=== PATIENT | female | born 1995 | race Caucasian/White ===

== ENCOUNTER 2019-05-14 19:35 | Emergency (ER) | payer MEDICAID, OTHER ==
[~2019-05-14] VITALS: Ht 160 cm; Wt 77.1 kg
[~2019-05-14 19:35] MED LIST: PRENCAP61 PO
[2019-05-14 20:53] LABS: Basophils # (auto) 0 uL; Basophils % (auto) 0.4 % (0.0-2.0); Eosinophils # (auto) 0.4 uL; Eosinophils % (auto) 2.9 % (0.0-7.0); Hematocrit 42.1 % (36.0-46.0); Lymphocytes # (auto) 3.7 uL; Lymphocytes % (auto) 29.8 % (10.0-50.0); Mean Corpuscular Hemoglobin 31.4 pg (28.0-32.0); Mean Corpuscular Hgb Conc. 33.3 g/dL (32.0-36.0); Mean Corpuscular Volume 94.5 fL (80.0-100.0); Monocytes # (auto) 1.4 uL; Monocytes % (auto) 11.5 % (0.0-12.0); Neutrophils # (auto) 6.9 uL; Neutrophils % (auto) 55.4 % (37.0-80.0); Platelet Count (auto) 346 10^3/uL (140-450); Red Blood Cells 4.46 10^6/uL (4.0-5.20); White Blood Cell 12.5 10^3/uL (4.4-10.8)
[2019-05-14 21:01] LABS: Urine Bacteria FEW /hpf (None Seen); Urine Blood 1+ /uL (Negative); Urine Specific Gravity 1.027 (1.001-1.035); Urine WBC <1 /hpf (0 - 5)
[2019-05-14 21:09] LABS: Albumin 3.6 g/dL (3.4-5.0); Calcium 8.8 mg/dL (8.5-10.1); Potassium 3.6 mmol/L (3.5-5.1)
[2019-05-14 21:10] LABS: Partial Thromboplastin Time 28.7 sec (23.64-32.05)
[2019-05-14 21:14] LABS: BUN/Creatinine Ratio 17.8; Bilirubin, Total 0.2 mg/dL (0.2-1.0); Total Protein 7.5 g/dL (6.4-8.2)
[2019-05-14 23:33] VITALS: BP 125/70
[2019-05-14] MEDS ORDERED: LIDOCAINE 2% (LOCAL ANESTH.) PF 5ml SDV IJ ONE (23:45)
[2019-05-14] MEDS ORDERED: cefTRIAXone SOD 1,000 MG VL IM ONE (23:45)
== END 2019-05-15 00:22 | disposition home or self-care (01) ==
LOC: ER 19:35
DX: A08.4 Viral intestinal infection, unspecified (principal); H66.92 Otitis media, unspecified, left ear; Z91.040 Latex allergy status
CPT/HCPCS: 36415; 80053; 81001; 82150; 83690; 83735; 84702; 85025; 85610; 85730; 96372; 99283; J0696; J2001

== ENCOUNTER 2023-01-18 16:34 | Emergency (ER) | payer MEDICAID ==
[~2023-01-18] VITALS: Ht 167.6 cm; Wt 69.3 kg
[2023-01-18] MEDS ORDERED: ALPR0.5T PO (17:27)
[2023-01-18 18:51] VITALS: BP 126/75; PULSE 80; RESP 16; TEMP 98; O2SAT 100
== END 2023-01-18 18:52 | disposition home or self-care (01) ==
LOC: ER 16:34
DX: K64.8 Other hemorrhoids (principal); F41.9 Anxiety disorder, unspecified; Z91.040 Latex allergy status

== ENCOUNTER 2023-01-26 19:24 | Emergency (ER) | payer MEDICAID ==
[~2023-01-26] VITALS: Ht 160 cm; Wt 77.0 kg
[~2023-01-26 19:24] MED LIST changes: +ALPR0.5T PO
[2023-01-26 20:00] LABS: Basophils # (auto) 0.1 10 ^3/uL (0-0.2); Basophils % (auto) 0.5 % (0.0-2.0); Eosinophils # (auto) 0.7 10 ^3/uL (0-0.8); Eosinophils % (auto) 4.8 % (0.0-7.0); Hemoglobin 13.7 g/dL (12.2-16.2); Lymphocytes # (auto) 4.3 10 ^3/uL (0.4-5.4); Lymphocytes % (auto) 31.8 % (10.0-50.0); Mean Corpuscular Hemoglobin 31.5 pg (28.0-32.0); Mean Corpuscular Hgb Conc. 33.5 g/dL (32.0-36.0); Monocytes # (auto) 1.3 10 ^3/uL (0-1.3); Monocytes % (auto) 9.6 % (0.0-12.0); Neutrophils # (auto) 7.3 10 ^3/uL (1.6-8.6); Neutrophils % (auto) 53.3 % (37.0-80.0); Nucleated Red Blood Cells % 0.1 %; Red Blood Cells 4.36 10^6/uL (4.0-5.20); White Blood Cell 13.6 10^3/uL (4.4-10.8)
[2023-01-26 20:13] LABS: INR 1.03 (0.9-1.15); Partial Thromboplastin Time 27.8 SEC (24.5-34.5); Prothrombin Time 10.8 sec (9.3-11.8)
[2023-01-26 20:21] LABS: Alanine Aminotransferase 18 U/L (7-40); Albumin 4.4 g/dL (3.2-4.8); Alkaline Phosphatase 78 U/L (46-116); Anion Gap 6 (5-15); Aspartate Aminotransferase 13 U/L (13-40); BUN/Creatinine Ratio 16.5 (10.0-20.0); Bilirubin, Total 0.3 mg/dL (0.2-1.0); Blood Urea Nitrogen 13 mg/dL (9-23); Calcium 9.7 mg/dL (8.7-10.4); Carbon Dioxide 26 mmol/L (20-30); Chloride 106 mmol/L (98-107); Glucose 95 mg/dL (74-106); Potassium 3.9 mmol/L (3.5-5.1); Sodium 138 mmol/L (136-145); Total Protein 7.4 g/dL (5.7-8.2)
[2023-01-26 20:49] LABS: Urine Amorphous Crystal FEW /hpf (None Seen); Urine Bacteria FEW /hpf (None Seen); Urine Blood Negative /uL (Negative); Urine Clarity CLOUDY (Clear); Urine Color Yellow (Yellow); Urine Protein, UAD Negative (Negative); Urine Specific Gravity 1.029 (1.001-1.035); Urine Urobilinogen Normal (Negative); Urine WBC 17 /hpf (0 - 5)
[2023-01-26] MEDS ORDERED: NITR-87 PO (22:00)
[2023-01-26] MEDS ORDERED: ALPR0.5T PO (22:00)
[2023-01-27 01:45] VITALS: BP 129/75; PULSE 76; RESP 76; TEMP 98.4; O2SAT 98
== END 2023-01-27 01:53 | disposition home or self-care (01) ==
LOC: ER 19:24
DX: F41.9 Anxiety disorder, unspecified (principal); N39.0 Urinary tract infection, site not specified; R07.89 Other chest pain; Z91.040 Latex allergy status; Z79.899 Other long term (current) drug therapy
CPT/HCPCS: 36415; 71045; 80053; 81001; 84484; 85025; 85610; 85730; 93005

== ENCOUNTER 2023-07-20 14:52 | Emergency (ER) | payer MEDICAID ==
[~2023-07-20] VITALS: Ht 160 cm; Wt 80.0 kg
[~2023-07-20 14:52] MED LIST changes: +NITR-87 PO
[2023-07-20] MEDS: ASPirin 325 MG TAB PO ONE (15:40)
[2023-07-20] MEDS: ALPRAZolam 0.5 MG TAB PO ONE (15:52)
[2023-07-20 15:55] LABS: Urine Bacteria None Seen /hpf (None Seen)
[2023-07-20 16:02] LABS: Basophils # (auto) 0.1 10 ^3/uL (0-0.2); Basophils % (auto) 0.4 % (0.0-2.0); Eosinophils # (auto) 0.3 10 ^3/uL (0-0.8); Eosinophils % (auto) 2.5 % (0.0-7.0); Hematocrit 42.6 % (36.0-46.0); Lymphocytes # (auto) 3.7 10 ^3/uL (0.4-5.4); Lymphocytes % (auto) 29.8 % (10.0-50.0); Mean Corpuscular Hemoglobin 30.4 pg (28.0-32.0); Mean Corpuscular Hgb Conc. 32.8 g/dL (32.0-36.0); Mean Corpuscular Volume 92.6 fL (80.0-100.0); Monocytes # (auto) 1.1 10 ^3/uL (0-1.3); Monocytes % (auto) 9.1 % (0.0-12.0); Neutrophils # (auto) 7.2 10 ^3/uL (1.6-8.6); Neutrophils % (auto) 58.2 % (37.0-80.0); Red Cell Distribution Width 12.6 % (11.8-14.3); White Blood Cell 12.3 10^3/uL (4.4-10.8)
[2023-07-20 16:09] LABS: Chloride 106 mmol/L (98-107); Potassium 3.3 mmol/L (3.5-5.1); Sodium 137 mmol/L (136-145)
[2023-07-20 16:10] LABS: Anion Gap 10 (5-15); Calcium 9.2 mg/dL (8.5-10.1); Carbon Dioxide 21 mmol/L (20-30)
[2023-07-20 16:14] LABS: Urine Blood 1+ /uL (Negative); Urine Clarity Turbid (Clear); Urine Color Light-Yellow (Yellow); Urine Protein, UAD Negative (Negative); Urine Specific Gravity 1.022 (1.001-1.035); Urine Urobilinogen Normal (Negative); Urine WBC 1 /hpf (0 - 5)
[2023-07-20 16:15] LABS: BUN/Creatinine Ratio 14.9 (10.0-20.0); Blood Urea Nitrogen 10 mg/dL (9-23); Glucose 87 mg/dL (74-106)
[2023-07-20 18:51] LABS: Amphetamine Screen, Urine Neg (NEGATIVE); Barbiturate Scree,Urine Neg (NEGATIVE); Benzodiazephine Screen, Urine Neg (NEGATIVE); Cannabinoid Screen, Urine Neg (NEGATIVE); Cocaine Screen, Urine Neg (NEGATIVE); Opiate Scree,Urine Neg (NEGATIVE); Phencyclidine Screen, Urine Neg (NEGATIVE)
[2023-07-20 20:36] VITALS: BP 111/66; PULSE 89; RESP 18; TEMP 97.9; O2SAT 99
== END 2023-07-20 20:37 | disposition home or self-care (01) ==
LOC: ER 14:52
DX: F41.9 Anxiety disorder, unspecified (principal); Z91.040 Latex allergy status; Z79.899 Other long term (current) drug therapy
CPT/HCPCS: 36415; 80048; 80307; 81001; 84484; 85025; 93005

== ENCOUNTER 2023-12-09 16:20 | Emergency (ER) | payer MEDICAID ==
[~2023-12-09] VITALS: Ht 160 cm; Wt 83.7 kg
[2023-12-09] MEDS: IPRATROPIUM BROM 0.5 MG/2.5ML INH SOL NEB ONE ×2 (16:54→18:29)
[2023-12-09] MEDS: ALBUTEROL SULF 2.5 MG/0.5ML(0.5%) NEB SOLN NEB ONE ×2 (16:55→18:29)
[2023-12-09] MEDS: DexAMETHasone SOD PHOS 10MG/1ML VIAL INJ IM ONE (17:01)
[2023-12-09] MEDS: cefTRIAXone SOD 1,000 MG VL IM ONE (17:01)
[2023-12-09] MEDS ORDERED: ALBU1.258 IN (17:48)
[2023-12-09 18:57] VITALS: BP 128/75; PULSE 113; RESP 16; TEMP 98.3; O2SAT 99
== END 2023-12-09 19:05 | disposition home or self-care (01) ==
LOC: ER 16:20
DX: J45.901 Unspecified asthma with (acute) exacerbation (principal); F41.9 Anxiety disorder, unspecified
CPT/HCPCS: 71046; 93005; 94640; 96372; 99284; J0696; J1100